=== PATIENT | female | born 1965 | race Two or more races ===

== ENCOUNTER 2016-05-15 19:20 | Emergency (ER) | payer OTHER ==
[2016-05-15 19:46] VITALS: BP 165/84
== END 2016-05-15 23:33 | disposition home or self-care (01) ==
LOC: ER 19:30
DX: S86.912A Strain of unspecified muscle(s) and tendon(s) at lower leg level, left leg, initial encounter (principal); S66.911A Strain of unspecified muscle, fascia and tendon at wrist and hand level, right hand, initial encounter; Z88.8 Allergy status to other drugs, medicaments and biological substances; W01.0XXA Fall on same level from slipping, tripping and stumbling without subsequent striking against object, initial encounter; Y93.89 Activity, other specified; Y99.8 Other external cause status; Y92.89 Other specified places as the place of occurrence of the external cause
CPT/HCPCS: 29505; 73562

== ENCOUNTER 2022-01-06 09:45 | Emergency (ER) | payer OTHER ==
[~2022-01-06] VITALS: Ht 162.6 cm; Wt 97.8 kg
[2022-01-06 10:03] VITALS: BP 151/87
== END 2022-01-06 12:39 | disposition home or self-care (01) ==
LOC: ER 09:45
DX: M23.91 Unspecified internal derangement of right knee (principal); Z88.8 Allergy status to other drugs, medicaments and biological substances

== ENCOUNTER 2022-09-23 11:38 | Emergency (ER) | payer OTHER ==
[~2022-09-23] VITALS: Ht 165.1 cm; Wt 112.1 kg
[2022-09-23] MEDS ORDERED: MECLIZINE HCL 25 MG TAB PO ONE (13:00)
[2022-09-23 13:44] VITALS: BP 179/86; PULSE 82; RESP 20; TEMP 98.4; O2SAT 97
[2022-09-23] MEDS ORDERED: MECL1TAB42 PO ×3 (13:50→14:09)
[2022-09-23] MEDS ORDERED: ZOFR4T PO ×3 (13:50→14:09)
== END 2022-09-23 14:24 | disposition home or self-care (01) ==
LOC: ER 11:38
DX: F07.81 Postconcussional syndrome (principal); Z79.899 Other long term (current) drug therapy
CPT/HCPCS: 70450; 99284; J8597